=== PATIENT | male | born 1965 | race Caucasian/White ===

== ENCOUNTER 2018-11-08 05:37 | Day surgery (SDC) | payer BC ==
[2018-11-01 11:06] LABS: MEAN CORPUSCULAR HEMOGLOBIN 32.2 pg (27.0-33.4); MEAN CORPUSCULAR HGB CONC 34.2 g/dL (32.0-36.0); MEAN CORPUSCULAR VOLUME 94 fl (80-97); PLATELET COUNT 287 10^3/uL (150-450); RED BLOOD COUNT 4.67 10^6/uL (4.35-5.55); RED CELL DISTRIBUTION WIDTH 13.3 % (11.5-14.0); WHITE BLOOD COUNT 5.8 10^3/uL (4.0-10.5)
[2018-11-01 11:28] LABS: ANION GAP 9 (5-19); BLOOD UREA NITROGEN 18 mg/dL (7-20); CALCIUM 9.5 mg/dL (8.4-10.2); CARBON DIOXIDE 27 mmol/L (22-30); CHLORIDE 103 mmol/L (98-107); GLUCOSE 99 mg/dL (75-110); POTASSIUM 4.4 mmol/L (3.6-5.0)
--- NOTE | 2018-11-01 12:44 | RADIOLOGY REPORT (SQ) ---
EXAM DESCRIPTION: CHEST PA/LATERAL COMPLETED DATE/TIME: 11/01/2018 10:29 am REASON FOR STUDY: PRE-OP COMPARISON: Two-view chest 04/15/2012 EXAM PARAMETERS: NUMBER OF VIEWS: two views TECHNIQUE: Digital Frontal and Lateral radiographic views of the chest acquired. RADIATION DOSE: NA LIMITATIONS: none FINDINGS: LUNGS AND PLEURA: No opacities, masses or pneumothorax. No pleural effusion. MEDIASTINUM AND HILAR STRUCTURES: No masses or contour abnormalities. HEART AND VASCULAR STRUCTURES: Heart normal size. No evidence for failure. BONES: No acute findings. HARDWARE: None in the chest. OTHER: No other significant finding. IMPRESSION: NO SIGNIFICANT RADIOGRAPHIC FINDING IN THE CHEST. TECHNICAL DOCUMENTATION: JOB ID: [id number] [employer]- All Rights Reserved Reading location - IP/workstation name: [email or web address]
--- NOTE | 2018-11-01 13:38 | EKG REPORT ---
SEVERITY:- NORMAL ECG - SINUS RHYTHM : Confirmed by: Musa Rubi MD 01-Nov-2018 13:38:09
[~2018-11-08 05:37] MED LIST: ACETAMINOPHEN 325 MG TABLET ONE; ACETAMINOPHEN 325 MG TABLET PO SCH; CEFAZOLIN INJ 1 GM VIAL ONE; CEFAZOLIN SODIUM 2 GM in DEXTROSE 5%-WATER 100 ML IV SCH; IBUPROFEN 800 MG in NORMAL SALINE 250 ML IV PRN; LACTATED RINGERS 1000 ML IV PRN; LIDOCAINE 0.5% INJ-PF (5 MG/ML) 50 ML SDV SUBCUT PRN; PREGABALIN 50 MG CAPSULE ONE; PREGABALIN 50 MG CAPSULE PO PRN
[2018-11-08] MEDS ORDERED: FENTANYL CITRATE INJ/PF 250 MCG/5 ML AMPULE ONE (06:58)
[2018-11-08] MEDS ORDERED: LIDOCAINE 2% INJ-PF (100 MG/5 ML) SYRINGE ONE (06:58)
[2018-11-08] MEDS ORDERED: HYDROMORPHONE HCL INJ/PF 2 MG/ML AMPULE ONE ×2 (06:59→14:30)
[2018-11-08] MEDS ORDERED: PROPOFOL INJ 200 MG/20 ML VIAL IV ONE (06:59)
[2018-11-08] MEDS ORDERED: MIDAZOLAM 2 MG/2 ML INJ ONE (06:59)
[2018-11-08] MEDS ORDERED: BUPIVACAINE HCL 0.25 % INJ/PF (2.5 MG/1 ML) 30 ML VIAL ONE (07:21)
[2018-11-08] MEDS ORDERED: METHYLPREDNISOLONE INJ 125 MG/2 ML SDV ONE (07:40)
[2018-11-08] MEDS ORDERED: FENTANYL CITRATE INJ/PF 100 MCG/2 ML AMPUL IV PRN ×2 (08:29)
[2018-11-08] MEDS ORDERED: MEPERIDINE HCL/PF INJ 25 MG/1 ML DISP.SYRIN IV PRN (08:29)
[2018-11-08] MEDS ORDERED: DIPHENHYDRAMINE HCL 50 MG/ML VIAL IV PRN (08:29)
[2018-11-08] MEDS ORDERED: PROMETHAZINE HCL INJ 25 MG/1 ML VIAL IV PRN ×2 (08:29)
[2018-11-08] MEDS ORDERED: BUPIVACAINE HCL 0.25 % INJ/PF (2.5 MG/1 ML) 30 ML VIAL INJ ONE (08:44)
[2018-11-08] MEDS ORDERED: FENTANYL CITRATE INJ/PF 100 MCG/2 ML AMPUL ONE (09:43)
[2018-11-08] MEDS ORDERED: ACETAMINOPHEN 1,000 MG/100 ML RTUPB IV ONE (09:44)
[2018-11-08] MEDS: FENTANYL CITRATE INJ/PF 100 MCG/2 ML AMPUL IV PRN ×2 (09:45→09:56)
[2018-11-08] MEDS: KETOROLAC TROMETHAMINE INJ/PF 30 MG/1 ML SDV ONE ×2 (09:47→15:09)
[2018-11-08] MEDS ORDERED: HYDROCODONE/ACETAMINOPHEN 10-325 MG TABLET PO PRN (09:52)
[2018-11-08] MEDS: HYDROMORPHONE HCL INJ/PF 2 MG/ML AMPULE ONE ×5 (10:15→11:15)
[2018-11-08] MEDS ORDERED: HYDROCODONE/ACETAMINOPHEN 10-325 MG TABLET ONE (12:02)
[2018-11-08] MEDS ORDERED: ONDANSETRON HCL INJ/PF 4 MG/2 ML SDV ONE (14:17)
[2018-11-08] MEDS ORDERED: NEOSTIGMINE METHYLSULFATE 10 MG/10 ML VIAL ONE (14:17)
[2018-11-08] MEDS ORDERED: SUCCINYLCHOLINE CHLORIDE INJ 200 MG/10 ML VIAL ONE (14:17)
[2018-11-08] MEDS ORDERED: ROCURONIUM BROMIDE INJ 50 MG/5 ML VIAL IV ONE (14:17)
[2018-11-08] MEDS ORDERED: DEXAMETHASONE SOD PHOSPHATE INJ 4 MG/1 ML VIAL ONE (14:17)
[2018-11-08] MEDS ORDERED: PHENYLEPHRINE HCL INJ/PF 10 MG/1 ML SDV ONE (14:17)
[2018-11-08] MEDS ORDERED: KETOROLAC TROMETHAMINE INJ/PF 30 MG/1 ML SDV ONE (14:30)
[2018-11-08 19:25] VITALS: BP 136/81
--- NOTE | 2018-11-12 00:21 | Discharge Summary ---
Discharge Summary (SDC) - Discharge Final Diagnosis: symptomatic umbilical hernia Date of Surgery: 11/08/18 Discharge Date: 11/08/18 Condition: Stable Forms: ASU Anesthesia D/C Instruction, Discharge POC-Surgical Service Treatment or Instructions: d/c home. diet as tolerated. activity: no lifting >10 lbs x 6 weeks. f/u 7-10 days. ok to shower in 48 hrs. no tub baths x 2 weeks. [employer] 10/325 mg po q6 hrs PRN pain. Ibuprofen 800mg PO TID with meals. Referrals: DULCE MARIA KIRK MD [ACTIVE STAFF] - 11/18/18 3:15 pm Respiratory Treatments at Home: Deep Breathing/Coughing, Incentive Spirometer Discharge Activity: No Lifting Over 10 Pounds, No Lifting/Push/Pulling Home Care Assistance: None Needed Report the Following to Your Physician Immediately: Shortness of Breath, Nausea, Vomiting, Increase in Pain, Fever over 101 Degrees, Unusual Bleeding, Redness, Swelling, Warmth, Increased Soreness
--- NOTE | 2018-11-12 00:28 | Operative Report ---
Nonrecallable Operative Report DATE OF SURGERY: 11/08/18 PREOPERATIVE DIAGNOSIS: Symptomatic umbilical hernia POSTOPERATIVE DIAGNOSIS: Same as above OPERATION: Robot-assisted laparoscopic umbilical hernia repair with mesh SURGEON: DULCE MARIA KIRK 1ST ROB[employer] APPLICATION ENGINEER: KATIE CASTREJON ANESTHESIA: GA TISSUE REMOVED OR ALTERED: none COMPLICATIONS: none apparent ESTIMATED BLOOD LOSS: minimal PROCEDURE: Drains/implants: 10 x [address] hernia mesh. Procedure in detail: After informed consent was obtained, the patient was brought to the operating room and laid in the supine position. The area of the abdomen was prepped and draped in a normal sterile fashion. An incision was created in the left upper quadrant. The abdomen was then accessed using a 5 mm trocar, 5 mm camera, and the Optiview technique. Once the trocar was inserted into the abdominal cavity, pneumoperitoneum was achieved via gas insufflation. Next, an 8 mm left lower quadrant trocar was placed under direct laparoscopic visualization. A 12 mm trocar was placed in the left lateral abdomen under laparoscopic visualization. The 5 mm trocar was removed and replaced with an 8 mm trocar. The robot was then brought over the patient and docked appropriately. I then assumed my position at the surgeon's console. Attention was turned to the umbilical hernia defect. All the preperitoneal fat in and around the defect was cleared away. There was some preperitoneal fat that was incarcerated within the hernia defect. This was reduced. Once the fascia was cleared, a number 1V lock suture was used to close the defect in simple running fashion. Next, a 10 x [address] hernia mesh was placed into the abdominal cavity. It was apposed to the anterior abdominal wall using the EPS. It was sutured in place using 2-0 V Lock Suture in simple running fashion. Once the mesh was found to lie in good position, the robot was undocked, and I scrubbed back into the case. The 8 mm trocar sites were closed using 0 Vicryl suture in simple interrupted fashion with the aid of the Caleb-Rose device. The 12 mm trocar was removed and the defect was closed using 0 Vicryl suture in [id number] fashion under direct vision. Once this was completed the overlying skin was closed using 4-0 Vicryl Rapide suture in subcuticular fashion. All sponge, instrument, needle counts were correct x2. Condition: Stable.
== END 2018-11-08 17:35 | disposition home or self-care (01) ==
LOC: OROUT 05:37
PROVIDERS: ATTEND Surgery
DX: K42.9 Umbilical hernia without obstruction or gangrene (principal); I10 Essential (primary) hypertension; E78.00 Pure hypercholesterolemia, unspecified; Z79.899 Other long term (current) drug therapy; G47.33 Obstructive sleep apnea (adult) (pediatric)
CPT/HCPCS: 93005; 86900; 86901; 36415 ×2; 86850; 85027; 80048; 71046; 93010; 94660; 00840; 49652; C1781; J2250; J0690; J3490 ×2; J1100; J3010 ×2; J2001; J2930; J1885; J2710; J1170; J2370; J0330; J2405; J2704; J0131; 840

== ENCOUNTER → 2019-07-08 | Outpatient (CLI) | payer BC ==
[2019-07-08 14:27] LABS: HEMATOCRIT 51.3 % (37.9-51.0); MEAN CORPUSCULAR HGB CONC 35.1 g/dL (32.0-36.0); MEAN CORPUSCULAR VOLUME 94 fl (80-97); PLATELET COUNT 261 10^3/uL (150-450); RED BLOOD COUNT 5.46 10^6/uL (4.35-5.55); RED CELL DISTRIBUTION WIDTH 14.2 % (11.5-14.0); WHITE BLOOD COUNT 6.2 10^3/uL (4.0-10.5)
[2019-07-08 14:42] LABS: ALBUMIN 4.3 g/dL (3.5-5.0); ALKALINE PHOSPHATASE 80 U/L (38-126); ANION GAP 9 (5-19); ASPARTATE AMINO TRANSFERASE 49 U/L (17-59); BILIRUBIN,DIRECT 0.2 mg/dL (0.0-0.4); BILIRUBIN,TOTAL 0.7 mg/dL (0.2-1.3); BLOOD UREA NITROGEN 16 mg/dL (7-20); CALCIUM 9.3 mg/dL (8.4-10.2); CARBON DIOXIDE 30 mmol/L (22-30); CHLORIDE 99 mmol/L (98-107); GLUCOSE 118 mg/dL (75-110); POTASSIUM 4.2 mmol/L (3.6-5.0); TOTAL PROTEIN 7.3 g/dL (6.3-8.2)
[2019-07-09 12:41] LABS: TESTOSTERONE FREE (DIRECT) 22.7 pg/mL (7.2-24.0)
== END ==
LOC: OD 13:12
PROVIDERS: ATTEND Nurse Practitioner
DX: E29.1 Testicular hypofunction (principal)
CPT/HCPCS: 36415; 80053; 84402; 84403; 85027

== ENCOUNTER → 2019-10-09 | Outpatient (CLI) | payer BC ==
[2019-10-09 13:24] LABS: ABSOLUTE MONOCYTES (AUTO) 0.6 10^3/uL (0.1-1.4); ABSOLUTE NEUT (AUTO) 4.3 10^3/uL (1.7-8.2); BASOPHILS % (AUTO) 0.7 % (0-2); EOSINOPHILS % (AUTO) 0.6 % (0-6); HEMATOCRIT 49.1 % (37.9-51.0); HEMOGLOBIN 16.8 g/dL (13.5-17.0); MEAN CORPUSCULAR HEMOGLOBIN 32.7 pg (27.0-33.4); MEAN CORPUSCULAR HGB CONC 34.2 g/dL (32.0-36.0); MEAN CORPUSCULAR VOLUME 96 fl (80-97); MONOCYTES % (AUTO) 9.5 % (3-13); PLATELET COUNT 281 10^3/uL (150-450); RED BLOOD COUNT 5.13 10^6/uL (4.35-5.55); RED CELL DISTRIBUTION WIDTH 13.9 % (11.5-14.0); SEGMENTED NEUTROPHILS % (AUTO) 72.2 % (42-78); TOTAL CELLS COUNTED % (AUTO) 100 %
[2019-10-09 13:43] LABS: ALBUMIN 4.5 g/dL (3.5-5.0); ALKALINE PHOSPHATASE 70 U/L (38-126); ANION GAP 8 (5-19); ASPARTATE AMINO TRANSFERASE 36 U/L (17-59); BILIRUBIN,TOTAL 0.5 mg/dL (0.2-1.3); BLOOD UREA NITROGEN 17 mg/dL (7-20); CALCIUM 9.5 mg/dL (8.4-10.2); CARBON DIOXIDE 26 mmol/L (22-30); CHLORIDE 103 mmol/L (98-107); CHOLESTEROL 111.68 mg/dL (0-200); GLUCOSE 110 mg/dL (75-110); POTASSIUM 4.4 mmol/L (3.6-5.0); TOTAL PROTEIN 7.1 g/dL (6.3-8.2); TRIGLYCERIDES 160 mg/dL (<150)
[2019-10-09 14:27] LABS: DIRECT LDL < 30 mg/dL (<100)
[2019-10-09 16:28] LABS: URINE AMPHETAMINES SCREEN NEGATIVE; URINE BARBITURATES SCREEN NEGATIVE; URINE BENZODIAZEPINES SCREEN NEGATIVE; URINE COCAINE SCREEN NEGATIVE; URINE MARIJUANA (THC) SCREEN NEGATIVE; URINE METHADONE SCREEN NEGATIVE; URINE PHENCYCLIDINE SCREEN NEGATIVE
== END ==
LOC: OD 12:25
PROVIDERS: ATTEND Nurse Practitioner
DX: E83.110 Hereditary hemochromatosis (principal); I10 Essential (primary) hypertension; E29.1 Testicular hypofunction; G56.42 Causalgia of left upper limb
CPT/HCPCS: 36415; 80053; 80061; 80307; 84153; 84402; 84403; 84443; 85025

== ENCOUNTER → 2019-11-04 | Outpatient (CLI) | payer BC ==
[2019-11-05 14:33] LABS: TESTOSTERONE FREE (DIRECT) 10.4 pg/mL (7.2-24.0)
== END ==
LOC: OD 08:10
PROVIDERS: ATTEND Nurse Practitioner
DX: E29.1 Testicular hypofunction (principal)
CPT/HCPCS: 36415; 84402; 84403

== ENCOUNTER → 2020-02-03 | Outpatient (CLI) | payer SELFPAY ==
[2020-02-03 09:24] LABS: HEMATOCRIT 48.9 % (37.9-51.0); HEMOGLOBIN 17.1 g/dL (13.5-17.0); MEAN CORPUSCULAR HEMOGLOBIN 32.7 pg (27.0-33.4); MEAN CORPUSCULAR HGB CONC 34.9 g/dL (32.0-36.0); MEAN CORPUSCULAR VOLUME 94 fl (80-97); PLATELET COUNT 236 10^3/uL (150-450); RED BLOOD COUNT 5.22 10^6/uL (4.35-5.55); RED CELL DISTRIBUTION WIDTH 13.7 % (11.5-14.0); WHITE BLOOD COUNT 5.3 10^3/uL (4.0-10.5)
[2020-02-03 09:39] LABS: ALBUMIN 4.3 g/dL (3.5-5.0); ALKALINE PHOSPHATASE 64 U/L (38-126); ANION GAP 10 (5-19); ASPARTATE AMINO TRANSFERASE 38 U/L (17-59); BILIRUBIN,DIRECT 0.3 mg/dL (0.0-0.4); BILIRUBIN,TOTAL 0.8 mg/dL (0.2-1.3); BLOOD UREA NITROGEN 19 mg/dL (7-20); CALCIUM 9.5 mg/dL (8.4-10.2); CARBON DIOXIDE 25 mmol/L (22-30); CHLORIDE 105 mmol/L (98-107); CHOLESTEROL 98.33 mg/dL (0-200); GLUCOSE 109 mg/dL (75-110); POTASSIUM 4.3 mmol/L (3.6-5.0); TOTAL PROTEIN 6.6 g/dL (6.3-8.2); TRIGLYCERIDES 143 mg/dL (<150)
[2020-02-03 10:18] LABS: DIRECT LDL < 30 mg/dL (<100)
== END ==
LOC: OD 08:16
PROVIDERS: ATTEND Nurse Practitioner
DX: I10 Essential (primary) hypertension (principal); R10.13 Epigastric pain; E78.2 Mixed hyperlipidemia
CPT/HCPCS: 36415; 80053; 80061; 83520; 84153; 84402; 84403; 84443; 85027